=== PATIENT | male | born 1960 | race African-American/Black ===

== ENCOUNTER 2019-05-17 19:27 | Inpatient (IN) ==
[2019-05-17] MEDS ORDERED: DEXTROSE 50% 25 GM/50 ML SYRINGE IV ONE (19:36)
[2019-05-17] MEDS ORDERED: SODIUM CHLORIDE 0.9% 1,000 ML IV STA (19:40)
[2019-05-17] MEDS ORDERED: MIDAZOLAM 2 MG/2 ML VIAL ONE (19:42)
[2019-05-17] MEDS ORDERED: MIDAZOLAM 2 MG/2 ML VIAL IV STA ×2 (19:44)
[2019-05-17] MEDS ORDERED: DEXTROSE 50% 25 GM/50 ML VIAL IV STA (19:44)
[2019-05-17 19:49] LABS: ABG Base Excess 0.2 MMOL/L (-2.5-2.5); ABG HCO3 24.6 MMOL/L (20-26); ABG Oxygen Saturation 99.9 % (95-100); ABG PH 7.437 (7.35-7.45); ABG TCO2 23.3 MMOL/L (23-27)
[2019-05-17 19:55] LABS: Basophils % 0.3 % (0.0-0.8); Hematocrit 20.9 VOL% (42.0-52.0); Immature Granulocytes % 0.8 %; Immature Granulocytes Absolute 0.03 #; Lymphocytes # 0.8 10*3/uL (1.4-4.0); Lymphocytes % 23.4 % (21.2-54.2); Mean Corpuscular HGB Conc 30.1 GM/DL (32-36); Mean Corpuscular Volume 68.3 FL (87-102); Mean Platelet Volume 10.5 FL (9.6-12.0); Monocytes % 3.1 % (1.7-12.7); NRBC # 0.02 10*3/uL; Neutrophils % 72.4 % (38.7-73.9); Platelet Count 288 T/CUMM (130-400); Red Blood Count 3.06 MC/CUMM (3.8-5.5); Red Cell Distribution Width 17.8 % (9.3-17.3); White Blood Count 3.6 T/CUMM (4-12)
[2019-05-17 19:57] LABS: Hemoglobin 6.3 GM/DL (14.0-18.0)
[2019-05-17] MEDS ORDERED: MIDAZOLAM 100 MG in SODIUM CHLORIDE 0.9% 80 ML IV SCH (20:00)
[2019-05-17 20:06] LABS: Alanine Aminotransferase 139 U/L (16-61); Albumin 1.6 G/DL (3.4-5.0); Alkaline Phosphatase 187 U/L (45-117); Aspartate Amino Transferase 658 U/L (0-37); Bilirubin,Total < 0.39 MG/DL (0.2-1.0); Blood Urea Nitrogen 51 MG/DL (7-18); Calcium 7.4 MG/DL (8.5-10.1); Estimated Glom Filtration Rate 77 ML/MIN; Glucose 163 MG/DL (74-106); Osmolality,Calculated 292.7 MOS/KG (273-304); Total Protein 7.5 G/DL (6.4-8.3)
[2019-05-17] MEDS: MIDAZOLAM 100 MG in SODIUM CHLORIDE 0.9% 80 ML IV PRN (20:09)
[2019-05-17 20:14] LABS: Anisocytosis 1+; Band Neutrophils 9 % (0-10); Hypochromasia 2+; Lymphocytes 23 % (20-55); Segmented Neutrophils 64 % (50-85); Target Cells 1+; Total Cells Counted 100
[2019-05-17 20:15] LABS: Platelet Estimate Adequate
[2019-05-17] MEDS ORDERED: NOREPINEPHRINE 4 MG/4 ML VIAL IV ONE ×2 (20:22→20:26)
[2019-05-17 20:25] LABS: Apearance,Urine CLOUDY (Clear); Bilirubin,Urine Negative (Negative); Blood, Urine Moderate mg/dL (Negative); Glucose,Urine (UA) Negative (Negative); Ketones,Urine Negative (Negative); Nitrite,Urine Negative (Negative); Protein,Urine 100 MG/DL; Urine Color Yellow (Yellow); Urine Specific Gravity 1.018 (1.001-1.035); Urine Urobilinogen < 2.0 EU/DL (0.2-1.0)
[2019-05-17] MEDS ORDERED: NOREPINEPHRINE 8 MG in SODIUM CHLORIDE 0.9% 242 ML IV PRN (20:25)
[2019-05-17] MEDS: NOREPINEPHRINE 8 MG in SODIUM CHLORIDE 0.9% 242 ML IV PRN (20:27)
[2019-05-17 20:28] LABS: Bacteria,Urine Moderate /HPF (Few); Mucus,Urine TRACE /LPF (Occasional); Squamous Epithelial Cell,Urine RARE /HPF (0-10); WBC,Urine TNTC /HPF (0-6)
[2019-05-17 20:29] LABS: INR 1.6; PT Patient Result 16.8 SECS (9.6-12.2); Partial Thromboplastin Time 37.6 SECS (20.8-36.0)
[2019-05-17] MEDS ORDERED: VANCOMYCIN INJ 1,000 MG in SODIUM CHLORIDE 0.9% 250 ML IV STA (20:37)
[2019-05-17] MEDS ORDERED: PIPERACILLIN/TAZOBACTAM 3,375 MG in SODIUM CHLORIDE 0.9% 100 ML IV STA (20:37)
[2019-05-17] MEDS ORDERED: SODIUM CHLORIDE 0.9% 1,000 ML IV ONE (21:00)
[2019-05-17] MEDS ORDERED: ROCURONIUM 100 MG/10 ML VIAL IV ONE (21:20)
[2019-05-17] MEDS ORDERED: MIDAZOLAM 2 MG/2 ML VIAL IV ONE (21:25)
[2019-05-17] MEDS ORDERED: PANTOPRAZOLE 40 MG VIAL IV STA (21:34)
[2019-05-17] MEDS: PANTOPRAZOLE INJ 200 MG in SODIUM CHLORIDE 0.9% 250 ML IV SCH (23:50)
[2019-05-18] MEDS ORDERED: ONDANSETRON 4 MG/2 ML VIAL IV PRN (00:15)
[2019-05-18] MEDS ORDERED: ACETAMINOPHEN 325 MG TABLET PO PRN (00:15)
[2019-05-18] MEDS ORDERED: SODIUM CHLORIDE 0.9% 1,000 ML IV PRN (00:15)
[2019-05-18] MEDS ORDERED: ALBUTEROL 2.5 MG/3 ML NEB RESP TX PRN (00:15)
[2019-05-18] MEDS ORDERED: INFLUENZA VIRUS VACCINE 0.5 ML SYRINGE IM ONE (00:23)
[2019-05-18] MEDS ORDERED: PNEUMOCOCCAL VACCINE (13 VALENT) 0.5 ML SYRINGE IM ONE (00:23)
[2019-05-18] MEDS ORDERED: fentaNYL 100 MCG/2 ML VIAL ONE (00:30)
[2019-05-18] MEDS: fentaNYL INJ 1,250 MCG in SODIUM CHLORIDE 0.9% 225 ML IV PRN (01:00)
[2019-05-18] MEDS: OCTREOTIDE 500 MCG in SODIUM CHLORIDE 0.9% 100 ML IV SCH ×3 (01:56→20:11)
[2019-05-18 01:57] LABS: Hemoglobin 6.4 GM/DL (14.0-18.0)
[2019-05-18] MEDS: DEXTROSE 5% NACL 0.9% 1,000 ML IV SCH ×3 (02:10→17:58)
[2019-05-18] MEDS: NOREPINEPHRINE 8 MG in SODIUM CHLORIDE 0.9% 242 ML IV PRN ×4 (04:06→21:42)
[2019-05-18 04:41] LABS: Basophils % 0.3 % (0.0-0.8); Hematocrit 29.7 VOL% (42.0-52.0); Hemoglobin 9.1 GM/DL (14.0-18.0); Immature Granulocytes % 0.3 %; Immature Granulocytes Absolute 0.02 #; Lymphocytes # 1.4 10*3/uL (1.4-4.0); Mean Corpuscular HGB Conc 30.6 GM/DL (32-36); Mean Corpuscular Volume 73.3 FL (87-102); Mean Platelet Volume 10.5 FL (9.6-12.0); Monocytes % 2.7 % (1.7-12.7); NRBC # 0.03 10*3/uL; Neutrophils % 78.7 % (38.7-73.9); Platelet Count 287 T/CUMM (130-400); Red Blood Count 4.05 MC/CUMM (3.8-5.5); Red Cell Distribution Width 22.2 % (9.3-17.3); White Blood Count 7.7 T/CUMM (4-12)
[2019-05-18] MEDS ORDERED: GLUCAGON 1 MG VIAL IM PRN (04:42)
[2019-05-18 05:15] LABS: Band Neutrophils 8 % (0-10); Hypochromasia 2+; Lymphocytes 17 % (20-55); Segmented Neutrophils 72 % (50-85); Target Cells 1+; Total Cells Counted 100
[2019-05-18 05:16] LABS: Anisocytosis 1+; Microcytosis 1+; Platelet Estimate Normal; Spherocytes Slight
[2019-05-18 05:19] LABS: Albumin 1.5 G/DL (3.4-5.0); Bilirubin,Total 0.6 MG/DL (0.2-1.0); Osmolality,Calculated 291.4 MOS/KG (273-304); Risk Ratio 2.16; Thyroid Stimulating Hormone 0.994 uIU/ml (0.358-3.74); VLDL CHOLESTEROL 4.8 MG/DL
[2019-05-18] MEDS: LEVOFLOXACIN INJ 750 MG in PREMIX 1 EACH IV SCH (05:26)
[2019-05-18] MEDS: PIPERACILLIN/TAZOBACTAM 3,375 MG in SODIUM CHLORIDE 0.9% 100 ML IV SCH ×3 (07:04→22:34)
[2019-05-18 07:27] LABS: ABG Base Excess -4.7 MMOL/L (-2.5-2.5); ABG HCO3 20.6 MMOL/L (20-26); ABG Oxygen Saturation 99.3 % (95-100); ABG PCO2 35.7 MM HG (35-48); ABG PH 7.361 (7.35-7.45); ABG TCO2 18.8 MMOL/L (23-27); Allen Test Positive; Pt O2 Delivery Device Ventilator
[2019-05-18] MEDS: ALBUTEROL/IPRATROPIUM 3 ML NEB RESP TX SCH ×4 (07:35→20:15)
[2019-05-18 07:49] LABS: Hematocrit 27.9 VOL% (42.0-52.0); Hemoglobin 8.6 GM/DL (14.0-18.0)
[2019-05-18] MEDS: VANCOMYCIN INJ 750 MG in SODIUM CHLORIDE 0.9% 250 ML IV SCH (10:17)
[2019-05-18 10:29] LABS: Albumin 1.5 G/DL (3.4-5.0); Bilirubin,Direct 0.21 MG/DL (0.0-0.20); Bilirubin,Indirect 0.3 MG/DL (0.0-1.0); Bilirubin,Total 0.5 MG/DL (0.2-1.0); Total Protein 8.1 G/DL (6.4-8.3)
[2019-05-18 12:31] LABS: Hematocrit 26.3 VOL% (42.0-52.0)
[2019-05-18] MEDS: SKIN HEALING OINT (AQUAPHOR) 50 GM TUBE TOP SCH (15:53)
[2019-05-18] MEDS: DEXTROSE 10% 250 ML BAG IV PRN (16:47)
[2019-05-18 18:34] LABS: Hematocrit 26.6 VOL% (42.0-52.0); Hemoglobin 8.2 GM/DL (14.0-18.0)
[2019-05-19] MEDS: PANTOPRAZOLE INJ 200 MG in SODIUM CHLORIDE 0.9% 250 ML IV SCH ×2 (00:20→22:07)
[2019-05-19] MEDS: ALBUTEROL/IPRATROPIUM 3 ML NEB RESP TX SCH ×4 (01:18→20:27)
[2019-05-19] MEDS: DEXTROSE 5% NACL 0.9% 1,000 ML IV SCH ×3 (02:20→18:29)
[2019-05-19] MEDS: NOREPINEPHRINE 8 MG in SODIUM CHLORIDE 0.9% 242 ML IV PRN (03:30)
[2019-05-19] MEDS: VANCOMYCIN INJ 750 MG in SODIUM CHLORIDE 0.9% 250 ML IV SCH ×2 (03:50→21:58)
[2019-05-19] MEDS: DEXTROSE 10% 250 ML BAG IV PRN ×3 (04:05→19:23)
[2019-05-19 04:35] LABS: Basophils % 0.3 % (0.0-0.8); Eosinophils % 0.1 % (0.00-10.9); Hematocrit 25.1 VOL% (42.0-52.0); Hemoglobin 7.9 GM/DL (14.0-18.0); Immature Granulocytes % 0.4 %; Immature Granulocytes Absolute 0.04 #; Lymphocytes # 1.2 10*3/uL (1.4-4.0); Lymphocytes % 12.2 % (21.2-54.2); Mean Corpuscular HGB Conc 31.5 GM/DL (32-36); Mean Corpuscular Volume 75.4 FL (87-102); Mean Platelet Volume 11.2 FL (9.6-12.0); Monocytes % 3.1 % (1.7-12.7); NRBC # 0.04 10*3/uL; Neutrophils % 83.9 % (38.7-73.9); Platelet Count 161 T/CUMM (130-400); Red Blood Count 3.33 MC/CUMM (3.8-5.5); Red Cell Distribution Width 21.2 % (9.3-17.3); White Blood Count 9.7 T/CUMM (4-12)
[2019-05-19 04:58] LABS: Albumin 1.2 G/DL (3.4-5.0); Bilirubin,Total 1.4 MG/DL (0.2-1.0); Calcium 6.7 MG/DL (8.5-10.1); Osmolality,Calculated 295.6 MOS/KG (273-304)
[2019-05-19] MEDS: LEVOFLOXACIN INJ 750 MG in PREMIX 1 EACH IV SCH (05:05)
[2019-05-19 05:13] LABS: Band Neutrophils 5 % (0-10); Lymphocytes 11 % (20-55); Nucleated Red Blood Cells 1 (0-5); Platelet Estimate Adequate; Segmented Neutrophils 83 % (50-85); Total Cells Counted 100
[2019-05-19 05:14] LABS: Hypochromasia 1+; Microcytosis 1+; Target Cells Few
[2019-05-19] MEDS: OCTREOTIDE 500 MCG in SODIUM CHLORIDE 0.9% 100 ML IV SCH ×2 (06:40→18:48)
[2019-05-19] MEDS: PIPERACILLIN/TAZOBACTAM 3,375 MG in SODIUM CHLORIDE 0.9% 100 ML IV SCH ×3 (06:45→21:41)
[2019-05-19] MEDS: SKIN HEALING OINT (AQUAPHOR) 50 GM TUBE TOP SCH (10:21)
[2019-05-19] MEDS: NOREPINEPHRINE 16 MG in SODIUM CHLORIDE 0.9% 234 ML IV PRN (10:25)
[2019-05-19] MEDS: fentaNYL INJ 1,250 MCG in SODIUM CHLORIDE 0.9% 225 ML IV PRN (12:40)
[2019-05-19] MEDS: MIDAZOLAM 100 MG in SODIUM CHLORIDE 0.9% 80 ML IV PRN (12:42)
[2019-05-20] MEDS: DEXTROSE 10% 250 ML BAG IV PRN ×2 (00:25→13:38)
[2019-05-20] MEDS: ALBUTEROL/IPRATROPIUM 3 ML NEB RESP TX SCH ×4 (00:30→19:44)
[2019-05-20] MEDS: DEXTROSE 5% NACL 0.9% 1,000 ML IV SCH ×3 (02:35→19:16)
[2019-05-20] MEDS: OCTREOTIDE 500 MCG in SODIUM CHLORIDE 0.9% 100 ML IV SCH (02:41)
[2019-05-20] MEDS: NOREPINEPHRINE 16 MG in SODIUM CHLORIDE 0.9% 234 ML IV PRN (02:43)
[2019-05-20 03:27] LABS: ABG Base Excess -6.4 MMOL/L (-2.5-2.5); ABG HCO3 19.1 MMOL/L (20-26); ABG Oxygen Saturation 97.5 % (95-100); ABG PCO2 35.8 MM HG (35-48); ABG PH 7.329 (7.35-7.45); ABG TCO2 17.1 MMOL/L (23-27); Allen Test Positive; Pt O2 Delivery Device Ventilator
[2019-05-20 04:39] LABS: Basophils % 0.3 % (0.0-0.8); Eosinophils % 0.3 % (0.00-10.9); Hematocrit 23.9 VOL% (42.0-52.0); Hemoglobin 7.4 GM/DL (14.0-18.0); Immature Granulocytes % 0.4 %; Immature Granulocytes Absolute 0.05 #; Lymphocytes # 1.3 10*3/uL (1.4-4.0); Lymphocytes % 11.7 % (21.2-54.2); Mean Corpuscular Volume 75.6 FL (87-102); Mean Platelet Volume 10.9 FL (9.6-12.0); Monocytes % 3.1 % (1.7-12.7); NRBC # 0.05 10*3/uL; Neutrophils % 84.2 % (38.7-73.9); Platelet Count 114 T/CUMM (130-400); Red Blood Count 3.16 MC/CUMM (3.8-5.5); Red Cell Distribution Width 21.5 % (9.3-17.3); White Blood Count 11.2 T/CUMM (4-12)
[2019-05-20 04:59] LABS: Albumin 1.2 G/DL (3.4-5.0); Bilirubin,Total 0.9 MG/DL (0.2-1.0); Total Protein 6.8 G/DL (6.4-8.3)
[2019-05-20 05:00] LABS: Band Neutrophils 3 % (0-10); Hypochromasia 1+; Lymphocytes 8 % (20-55); Nucleated Red Blood Cells 2 (0-5); Platelet Estimate Decreased; Segmented Neutrophils 87 % (50-85); Target Cells Few; Total Cells Counted 100
[2019-05-20 05:02] LABS: Microcytosis 1+
[2019-05-20] MEDS: LEVOFLOXACIN INJ 750 MG in PREMIX 1 EACH IV SCH (05:19)
[2019-05-20] MEDS: PIPERACILLIN/TAZOBACTAM 3,375 MG in SODIUM CHLORIDE 0.9% 100 ML IV SCH ×3 (06:39→22:42)
[2019-05-20] MEDS: HYDROCORTISONE 100 MG VIAL IV SCH ×2 (08:21→17:51)
[2019-05-20] MEDS: SKIN HEALING OINT (AQUAPHOR) 50 GM TUBE TOP SCH (08:23)
[2019-05-20 12:47] LABS: Anti-Nuclear Antibody Pattern SPECKLED
[2019-05-20] MEDS: PANTOPRAZOLE 40 MG VIAL IV SCH (13:13)
[2019-05-20] MEDS: VANCOMYCIN INJ 750 MG in SODIUM CHLORIDE 0.9% 250 ML IV SCH (17:53)
[2019-05-20 19:32] LABS: Hematocrit 27.4 VOL% (42.0-52.0); Hemoglobin 8.6 GM/DL (14.0-18.0)
[2019-05-21] MEDS: PANTOPRAZOLE 40 MG VIAL IV SCH ×3 (00:31→23:09)
[2019-05-21] MEDS: HYDROCORTISONE 100 MG VIAL IV SCH ×3 (00:31→16:27)
[2019-05-21] MEDS: SODIUM CHLORIDE 0.9% 1,000 ML IV SCH ×3 (00:31→18:48)
[2019-05-21] MEDS: ALBUTEROL/IPRATROPIUM 3 ML NEB RESP TX SCH ×4 (00:50→19:26)
[2019-05-21 05:26] LABS: Prealbumin < 3.0 MG/DL (20-40)
[2019-05-21] MEDS: LEVOFLOXACIN INJ 750 MG in PREMIX 1 EACH IV SCH (05:32)
[2019-05-21] MEDS: PIPERACILLIN/TAZOBACTAM 3,375 MG in SODIUM CHLORIDE 0.9% 100 ML IV SCH (06:00)
[2019-05-21] MEDS: fentaNYL INJ 1,250 MCG in SODIUM CHLORIDE 0.9% 225 ML IV PRN ×2 (07:22→22:40)
[2019-05-21] MEDS: SKIN HEALING OINT (AQUAPHOR) 50 GM TUBE TOP SCH (09:36)
[2019-05-21] MEDS: MIDAZOLAM 100 MG in SODIUM CHLORIDE 0.9% 80 ML IV PRN (09:37)
[2019-05-21 09:51] LABS: Double Stranded DNA Antibodies < 25.0 IU/ML
[2019-05-21 10:05] LABS: Basophils % 0.1 % (0.0-0.8); Hemoglobin 8.9 GM/DL (14.0-18.0); Immature Granulocytes % 0.7 %; Immature Granulocytes Absolute 0.07 #; Lymphocytes # 0.8 10*3/uL (1.4-4.0); Lymphocytes % 7.5 % (21.2-54.2); Mean Corpuscular HGB Conc 31.8 GM/DL (32-36); Mean Corpuscular Volume 78.7 FL (87-102); Mean Platelet Volume 10.8 FL (9.6-12.0); Monocytes % 2.9 % (1.7-12.7); NRBC # 0.02 10*3/uL; Neutrophils % 88.8 % (38.7-73.9); Platelet Count 123 T/CUMM (130-400); Red Blood Count 3.56 MC/CUMM (3.8-5.5); Red Cell Distribution Width 21.8 % (9.3-17.3); White Blood Count 10.8 T/CUMM (4-12)
[2019-05-21 10:32] LABS: Band Neutrophils 7 % (0-10); Hypochromasia 1+; Lymphocytes 5 % (20-55); Microcytosis 1+; Segmented Neutrophils 86 % (50-85); Target Cells Few; Total Cells Counted 100
[2019-05-21 10:33] LABS: Burr Cells Few; Platelet Estimate Adequate
[2019-05-21] MEDS: VANCOMYCIN INJ 750 MG in SODIUM CHLORIDE 0.9% 250 ML IV SCH (11:15)
[2019-05-21 11:30] LABS: Hepatitis B Core IgM Quant 0.09 Index; Hepatitis B Surface Ag Quant < 0.10 Index; Hepatitis B Surface Ag Result Negative (Negative); Hepatitis C Virus Ab Result Negative (Negative)
[2019-05-21] MEDS: levETIRAcetam LIQUID 100 MG/ML 30 ML/BOTTLE PER TUBE SCH ×2 (11:34→20:23)
[2019-05-21] MEDS: ceFAZolin 1,000 MG in SYRINGE 1 EACH IV SCH ×2 (14:28→21:06)
[2019-05-21 15:57] LABS: Anti SS-A Antibodies > 100 EU/ML
[2019-05-21] MEDS: PHENYTOIN 100 MG/4 ML UDCUP PER TUBE SCH (20:23)
[2019-05-22] MEDS: HYDROCORTISONE 100 MG VIAL IV SCH ×4 (00:17→23:38)
[2019-05-22] MEDS: ALBUTEROL/IPRATROPIUM 3 ML NEB RESP TX SCH ×4 (01:58→19:25)
[2019-05-22] MEDS: SODIUM CHLORIDE 0.9% 1,000 ML IV SCH (02:54)
[2019-05-22 03:18] LABS: ABG Base Excess -7.8 MMOL/L (-2.5-2.5); ABG HCO3 18.1 MMOL/L (20-26); ABG Oxygen Saturation 99.1 % (95-100); ABG PCO2 38.8 MM HG (35-48); ABG PH 7.284 (7.35-7.45); ABG TCO2 17.1 MMOL/L (23-27); Allen Test Positive; Pt O2 Delivery Device Ventilator
[2019-05-22] MEDS: ceFAZolin 1,000 MG in SYRINGE 1 EACH IV SCH ×3 (05:00→22:01)
[2019-05-22] MEDS: MIDAZOLAM 100 MG in SODIUM CHLORIDE 0.9% 80 ML IV PRN (08:32)
[2019-05-22] MEDS: SKIN HEALING OINT (AQUAPHOR) 50 GM TUBE TOP SCH (08:37)
[2019-05-22 10:13] LABS: Troponin I 0.042 NG/ML (0.00-0.045)
[2019-05-22] MEDS: PANTOPRAZOLE 40 MG VIAL IV SCH ×2 (11:24→23:38)
[2019-05-22] MEDS: levETIRAcetam LIQUID 100 MG/ML 30 ML/BOTTLE PER TUBE SCH ×2 (11:29→20:13)
[2019-05-22] MEDS: PHENYTOIN 100 MG/4 ML UDCUP PER TUBE SCH ×2 (11:29→20:13)
[2019-05-22 11:44] LABS: Basophils % 0.1 % (0.0-0.8); Hematocrit 27.9 VOL% (42.0-52.0); Hemoglobin 8.8 GM/DL (14.0-18.0); Immature Granulocytes % 0.5 %; Immature Granulocytes Absolute 0.05 #; Lymphocytes # 0.8 10*3/uL (1.4-4.0); Lymphocytes % 8.7 % (21.2-54.2); Mean Corpuscular HGB Conc 31.5 GM/DL (32-36); Mean Corpuscular Volume 78.4 FL (87-102); Mean Platelet Volume 10.4 FL (9.6-12.0); Monocytes % 3.4 % (1.7-12.7); Neutrophils % 87.3 % (38.7-73.9); Platelet Count 116 T/CUMM (130-400); Red Blood Count 3.56 MC/CUMM (3.8-5.5); Red Cell Distribution Width 22.7 % (9.3-17.3); White Blood Count 9.4 T/CUMM (4-12)
[2019-05-22 12:01] LABS: Bilirubin,Total 0.4 MG/DL (0.2-1.0); Calcium 7.1 MG/DL (8.5-10.1); Osmolality,Calculated 300.3 MOS/KG (273-304); Total Protein 6.5 G/DL (6.4-8.3)
[2019-05-22] MEDS: fentaNYL INJ 1,250 MCG in SODIUM CHLORIDE 0.9% 225 ML IV PRN (12:22)
[2019-05-22] MEDS: LACTATED RINGERS 1,000 ML IV SCH (12:24)
[2019-05-22] MEDS ORDERED: MAGNESIUM SULF RIDER 4 GM in PREMIX 1 EACH IV PRN (12:34)
[2019-05-22] MEDS ORDERED: MAGNESIUM SULF RIDER 2 GM in PREMIX 1 EACH IV PRN (12:34)
[2019-05-22] MEDS ORDERED: SODIUM CHLOR 0.45% KCL 20 MEQ 20 MEQ/1,000 ML BAG IV SCH (13:00)
[2019-05-22 13:05] LABS: Lymphocytes 9 % (20-55); Platelet Estimate Decreased; Segmented Neutrophils 88 % (50-85); Total Cells Counted 100
[2019-05-22 13:06] LABS: Acanthocytes Few; Anisocytosis Slight; Hypochromasia 1+; Microcytosis 1+; Ovalocytes Few; Target Cells Few; Tear Drop Cells Few
[2019-05-22] MEDS ORDERED: ETOMIDATE 40 MG/20 ML VIAL IV ONE (15:17)
[2019-05-22] MEDS: POTASSIUM CHLORIDE 20 MEQ/15 ML UDCUP PER TUBE PRN ×3 (17:14→23:37)
[2019-05-23] MEDS: ALBUTEROL/IPRATROPIUM 3 ML NEB RESP TX SCH ×4 (00:58→18:16)
[2019-05-23] MEDS: fentaNYL INJ 1,250 MCG in SODIUM CHLORIDE 0.9% 225 ML IV PRN ×2 (02:54→13:46)
[2019-05-23] MEDS: ceFAZolin 1,000 MG in SYRINGE 1 EACH IV SCH ×3 (05:58→21:58)
[2019-05-23 07:58] LABS: Calcium 7.3 MG/DL (8.5-10.1)
[2019-05-23] MEDS: HYDROCORTISONE 100 MG VIAL IV SCH ×3 (08:34→23:00)
[2019-05-23] MEDS: LACTATED RINGERS 1,000 ML IV SCH (08:37)
[2019-05-23] MEDS: SKIN HEALING OINT (AQUAPHOR) 50 GM TUBE TOP SCH (09:56)
[2019-05-23] MEDS: PHENYTOIN 100 MG/4 ML UDCUP PER TUBE SCH ×2 (09:56→21:57)
[2019-05-23] MEDS: levETIRAcetam LIQUID 100 MG/ML 30 ML/BOTTLE PER TUBE SCH ×2 (10:33→21:58)
[2019-05-23] MEDS: MIDAZOLAM 100 MG in SODIUM CHLORIDE 0.9% 80 ML IV PRN (10:34)
[2019-05-23] MEDS: PANTOPRAZOLE 40 MG VIAL IV SCH ×2 (11:50→22:47)
[2019-05-23 13:08] LABS: ABG Base Excess -3.1 MMOL/L (-2.5-2.5); ABG HCO3 21.9 MMOL/L (20-26); ABG PCO2 34.2 MM HG (35-48); ABG PH 7.399 (7.35-7.45); ABG TCO2 19.2 MMOL/L (23-27)
[2019-05-23] MEDS: FUROSEMIDE 40 MG/4 ML VIAL IV SCH (15:55)
[2019-05-23 16:14] LABS: Basophils % 0.1 % (0.0-0.8); Eosinophils % 0.1 % (0.00-10.9); Hematocrit 30.7 VOL% (42.0-52.0); Hemoglobin 9.6 GM/DL (14.0-18.0); Immature Granulocytes % 0.4 %; Immature Granulocytes Absolute 0.04 #; Lymphocytes # 1.3 10*3/uL (1.4-4.0); Lymphocytes % 13.7 % (21.2-54.2); Mean Corpuscular HGB Conc 31.3 GM/DL (32-36); Mean Corpuscular Volume 79.3 FL (87-102); Monocytes % 2.9 % (1.7-12.7); Neutrophils % 82.8 % (38.7-73.9); Platelet Count 109 T/CUMM (130-400); Red Blood Count 3.87 MC/CUMM (3.8-5.5); Red Cell Distribution Width 23.1 % (9.3-17.3); White Blood Count 9.3 T/CUMM (4-12)
[2019-05-23] MEDS: THIAMINE 200 MG/2 ML VIAL IV SCH (16:31)
[2019-05-23] MEDS: FOLIC ACID INJ 1 MG in SYRINGE 1 EACH IV SCH (16:32)
[2019-05-23] MEDS ORDERED: LORazepam 2 MG/1 ML VIAL IV ONE (16:56)
[2019-05-23] MEDS: DEXMEDETOMIDINE 200 MCG in SODIUM CHLORIDE 0.9% 48 ML IV PRN (17:40)
[2019-05-23 18:15] LABS: Hypochromasia 3+
[2019-05-23 18:16] LABS: Burr Cells 2+; Microcytosis 2+; Schistocytes 1+
[2019-05-23 18:17] LABS: Polychromasia Slight; Spherocytes 1+; Target Cells 2+
[2019-05-23 18:18] LABS: Anisocytosis 1+; Platelet Estimate Adequate
[2019-05-24] MEDS: fentaNYL INJ 1,250 MCG in SODIUM CHLORIDE 0.9% 225 ML IV PRN (00:32)
[2019-05-24] MEDS: ALBUTEROL/IPRATROPIUM 3 ML NEB RESP TX SCH ×4 (01:07→19:02)
[2019-05-24] MEDS: DEXMEDETOMIDINE 200 MCG in SODIUM CHLORIDE 0.9% 48 ML IV PRN (02:21)
[2019-05-24 04:21] LABS: ABG HCO3 25.3 MMOL/L (20-26); ABG Oxygen Saturation 98.4 % (95-100); ABG PCO2 46.4 MM HG (35-48); ABG PH 7.368 (7.35-7.45); ABG TCO2 24.5 MMOL/L (23-27); Allen Test Positive; Pt O2 Delivery Device Ventilator
[2019-05-24] MEDS ORDERED: SODIUM CHLORIDE 0.9% 500 ML IV ONE (05:17)
[2019-05-24] MEDS: ceFAZolin 1,000 MG in SYRINGE 1 EACH IV SCH ×3 (05:55→21:43)
[2019-05-24 06:18] LABS: Calcium 6.8 MG/DL (8.5-10.1); Osmolality,Calculated 297.4 MOS/KG (273-304)
[2019-05-24 06:24] LABS: Basophils % 0.1 % (0.0-0.8); Eosinophils % 0.1 % (0.00-10.9); Hematocrit 28.6 VOL% (42.0-52.0); Immature Granulocytes % 0.4 %; Immature Granulocytes Absolute 0.03 #; Lymphocytes # 1.1 10*3/uL (1.4-4.0); Lymphocytes % 13.6 % (21.2-54.2); Mean Corpuscular HGB Conc 31.5 GM/DL (32-36); Mean Corpuscular Volume 79.2 FL (87-102); Monocytes % 2.3 % (1.7-12.7); Neutrophils % 83.5 % (38.7-73.9); Platelet Count 68 T/CUMM (130-400); Red Blood Count 3.61 MC/CUMM (3.8-5.5); Red Cell Distribution Width 22.9 % (9.3-17.3); White Blood Count 7.8 T/CUMM (4-12)
[2019-05-24 07:05] LABS: Anisocytosis 1+; Band Neutrophils 1 % (0-10); Lymphocytes 15 % (20-55); Segmented Neutrophils 84 % (50-85); Total Cells Counted 100
[2019-05-24 07:06] LABS: Hypochromasia 1+; Platelet Estimate Decreased; Target Cells 2+
[2019-05-24] MEDS: FOLIC ACID INJ 1 MG in SYRINGE 1 EACH IV SCH (08:27)
[2019-05-24] MEDS: POTASSIUM CHLORIDE RIDER 20 MEQ in PREMIX 1 EACH IV PRN ×2 (08:27→11:20)
[2019-05-24] MEDS: HYDROCORTISONE 100 MG VIAL IV SCH ×2 (08:28→17:14)
[2019-05-24] MEDS: FUROSEMIDE 40 MG/4 ML VIAL IV SCH (08:30)
[2019-05-24] MEDS: THIAMINE 200 MG/2 ML VIAL IV SCH (08:31)
[2019-05-24] MEDS: SKIN HEALING OINT (AQUAPHOR) 50 GM TUBE TOP SCH (08:32)
[2019-05-24] MEDS: PHENYTOIN 100 MG/4 ML UDCUP PER TUBE SCH ×2 (08:40→21:44)
[2019-05-24] MEDS: PANTOPRAZOLE 40 MG VIAL IV SCH (11:19)
[2019-05-24] MEDS: levETIRAcetam LIQUID 100 MG/ML 30 ML/BOTTLE PER TUBE SCH ×2 (11:19→22:29)
[2019-05-24] MEDS: FAMOTIDINE 20 MG/2 ML VIAL IV SCH (15:53)
[2019-05-24 16:16] LABS: INR 1.1; PT Patient Result 12.1 SECS (9.6-12.2)
[2019-05-24] MEDS: DEXTROSE 10% 250 ML BAG IV PRN (16:28)
[2019-05-25] MEDS: POTASSIUM CHLORIDE RIDER 20 MEQ in PREMIX 1 EACH IV PRN ×2 (00:23→02:23)
[2019-05-25] MEDS: ALBUTEROL/IPRATROPIUM 3 ML NEB RESP TX SCH ×4 (00:27→19:05)
[2019-05-25] MEDS: HYDROCORTISONE 100 MG VIAL IV SCH ×3 (00:33→16:23)
[2019-05-25 03:47] LABS: Basophils % 0.1 % (0.0-0.8); Eosinophils % 0.1 % (0.00-10.9); Hematocrit 30.7 VOL% (42.0-52.0); Hemoglobin 9.6 GM/DL (14.0-18.0); Immature Granulocytes % 0.4 %; Immature Granulocytes Absolute 0.04 #; Lymphocytes % 9.5 % (21.2-54.2); Mean Corpuscular HGB Conc 31.3 GM/DL (32-36); Mean Corpuscular Volume 78.3 FL (87-102); Monocytes % 1.9 % (1.7-12.7); Platelet Count 72 T/CUMM (130-400); Red Blood Count 3.92 MC/CUMM (3.8-5.5); Red Cell Distribution Width 22.6 % (9.3-17.3)
[2019-05-25 04:27] LABS: Prealbumin 6.6 MG/DL (20-40)
[2019-05-25] MEDS: FAMOTIDINE 20 MG/2 ML VIAL IV SCH ×2 (04:29→16:23)
[2019-05-25 04:32] LABS: Band Neutrophils 1 % (0-10); Lymphocytes 7 % (20-55); Segmented Neutrophils 91 % (50-85); Total Cells Counted 100
[2019-05-25 04:33] LABS: Hypochromasia 1+; Platelet Estimate Decreased
[2019-05-25 04:34] LABS: Microcytosis Slight
[2019-05-25 04:50] LABS: Osmolality,Calculated 282.3 MOS/KG (273-304)
[2019-05-25 05:05] LABS: Alanine Aminotransferase 30 U/L (16-61); Albumin 1.1 G/DL (3.4-5.0); Alkaline Phosphatase 164 U/L (45-117); Aspartate Amino Transferase 95 U/L (0-37); Bilirubin,Direct < 0.100 MG/DL (0.0-0.20); Bilirubin,Indirect 0.4 MG/DL (0.0-1.0); Total Protein 6.8 G/DL (6.4-8.3)
[2019-05-25] MEDS: ceFAZolin 1,000 MG in SYRINGE 1 EACH IV SCH ×3 (06:28→21:18)
[2019-05-25] MEDS ORDERED: ETOMIDATE 20 MG/10 ML VIAL IV ONE (09:00)
[2019-05-25] MEDS: PHENYTOIN 100 MG/4 ML UDCUP PER TUBE SCH (09:25)
[2019-05-25] MEDS: THIAMINE 200 MG/2 ML VIAL IV SCH (09:29)
[2019-05-25] MEDS: carvediloL 3.125 MG TABLET PO SCH (09:33)
[2019-05-25] MEDS: FOLIC ACID INJ 1 MG in SYRINGE 1 EACH IV SCH (09:34)
[2019-05-25] MEDS: levETIRAcetam LIQUID 100 MG/ML 30 ML/BOTTLE PER TUBE SCH (09:38)
[2019-05-25] MEDS: SKIN HEALING OINT (AQUAPHOR) 50 GM TUBE TOP SCH (09:41)
[2019-05-25] MEDS: DEXTROSE 10% 250 ML BAG IV PRN (21:10)
[2019-05-26] MEDS: DEXTROSE 10% 250 ML BAG IV PRN ×2 (00:01→04:41)
[2019-05-26] MEDS ORDERED: DEXTROSE 5% NACL 0.45% 1,000 ML IV SCH (00:30)
[2019-05-26] MEDS: HYDROCORTISONE 100 MG VIAL IV SCH ×3 (00:59→17:25)
[2019-05-26] MEDS: carvediloL 3.125 MG TABLET PO SCH (01:00)
[2019-05-26] MEDS: PHENYTOIN 100 MG/4 ML UDCUP PER TUBE SCH ×3 (01:00→20:54)
[2019-05-26] MEDS: levETIRAcetam LIQUID 100 MG/ML 30 ML/BOTTLE PER TUBE SCH (01:06)
[2019-05-26] MEDS: ALBUTEROL/IPRATROPIUM 3 ML NEB RESP TX SCH ×4 (01:07→19:28)
[2019-05-26] MEDS ORDERED: DEXTROSE 10% 1,000 ML IV SCH (05:00)
[2019-05-26] MEDS: DEXTROSE 10% 500 ML IV SCH ×5 (05:43→20:58)
[2019-05-26] MEDS: FAMOTIDINE 20 MG/2 ML VIAL IV SCH (05:44)
[2019-05-26] MEDS: ceFAZolin 1,000 MG in SYRINGE 1 EACH IV SCH ×3 (05:44→21:00)
[2019-05-26 06:40] LABS: Calcium 7.3 MG/DL (8.5-10.1); Osmolality,Calculated 268.4 MOS/KG (273-304)
[2019-05-26 07:03] LABS: Basophils % 0.1 % (0.0-0.8); Eosinophils % 0.1 % (0.00-10.9); Hematocrit 33.9 VOL% (42.0-52.0); Hemoglobin 10.6 GM/DL (14.0-18.0); Immature Granulocytes % 0.6 %; Immature Granulocytes Absolute 0.05 #; Lymphocytes # 1.3 10*3/uL (1.4-4.0); Lymphocytes % 14.2 % (21.2-54.2); Mean Corpuscular HGB Conc 31.3 GM/DL (32-36); Mean Corpuscular Volume 78.1 FL (87-102); Monocytes % 2.6 % (1.7-12.7); Neutrophils % 82.4 % (38.7-73.9); Red Blood Count 4.34 MC/CUMM (3.8-5.5); Red Cell Distribution Width 22.9 % (9.3-17.3); White Blood Count 9.1 T/CUMM (4-12)
[2019-05-26 07:06] LABS: Platelet Count 99 T/CUMM (130-400)
[2019-05-26 07:22] LABS: Band Neutrophils 1 % (0-10); Hypochromasia 1+; Lymphocytes 12 % (20-55); Platelet Estimate Decreased; Segmented Neutrophils 86 % (50-85); Total Cells Counted 100
[2019-05-26 07:23] LABS: Microcytosis Slight
[2019-05-26] MEDS: carvediloL 6.25 MG TABLET PO SCH ×2 (08:45→17:32)
[2019-05-26] MEDS: SKIN HEALING OINT (AQUAPHOR) 50 GM TUBE TOP SCH (09:08)
[2019-05-26] MEDS ORDERED: POTASSIUM PHOSPHATE 15 MMOL in SODIUM CHLORIDE 0.9% 100 ML IV ONE (10:00)
[2019-05-26] MEDS ORDERED: TUBERCULIN SKIN TEST 0.1 ML SYRINGE INTRADERM ONE (10:58)
[2019-05-26 14:44] LABS: Basophils % 0.3 % (0.0-0.8); Hematocrit 31.4 VOL% (42.0-52.0); Hemoglobin 10.1 GM/DL (14.0-18.0); Immature Granulocytes % 0.4 %; Immature Granulocytes Absolute 0.05 #; Lymphocytes # 1.3 10*3/uL (1.4-4.0); Mean Corpuscular HGB Conc 32.2 GM/DL (32-36); Monocytes % 1.9 % (1.7-12.7); Neutrophils % 86.4 % (38.7-73.9); Platelet Count 101 T/CUMM (130-400); Red Blood Count 4.08 MC/CUMM (3.8-5.5); Red Cell Distribution Width 22.5 % (9.3-17.3); White Blood Count 11.5 T/CUMM (4-12)
[2019-05-26 15:05] LABS: Anisocytosis 1+; Hypochromasia 1+; Lymphocytes 11 % (20-55); Microcytosis 1+; Platelet Estimate Decreased; Segmented Neutrophils 87 % (50-85); Total Cells Counted 100
[2019-05-26 15:06] LABS: Ovalocytes Few; Target Cells Few; Tear Drop Cells Few
[2019-05-27] MEDS: HYDROCORTISONE 100 MG VIAL IV SCH ×3 (00:20→16:51)
[2019-05-27] MEDS: DEXTROSE 10% 500 ML IV SCH ×2 (01:00→08:13)
[2019-05-27 06:08] LABS: Calcium 7.3 MG/DL (8.5-10.1); Osmolality,Calculated 265.5 MOS/KG (273-304)
[2019-05-27 06:11] LABS: Albumin 1.1 G/DL (3.4-5.0); Bilirubin,Total 0.9 MG/DL (0.2-1.0); Calcium 7.2 MG/DL (8.5-10.1); Osmolality,Calculated 269.2 MOS/KG (273-304); Total Protein 5.9 G/DL (6.4-8.3)
[2019-05-27 06:24] LABS: Basophils % 0.1 % (0.0-0.8); Eosinophils % 0.2 % (0.00-10.9); Hematocrit 27.7 VOL% (42.0-52.0); Hemoglobin 8.9 GM/DL (14.0-18.0); Immature Granulocytes % 0.6 %; Immature Granulocytes Absolute 0.06 #; Lymphocytes # 1.5 10*3/uL (1.4-4.0); Lymphocytes % 14.9 % (21.2-54.2); Mean Corpuscular HGB Conc 32.1 GM/DL (32-36); Mean Corpuscular Volume 76.9 FL (87-102); Monocytes % 1.9 % (1.7-12.7); Neutrophils % 82.3 % (38.7-73.9); Platelet Count 132 T/CUMM (130-400); Red Cell Distribution Width 22.5 % (9.3-17.3); White Blood Count 9.9 T/CUMM (4-12)
[2019-05-27 06:42] LABS: Band Neutrophils 9 % (0-10); Hypochromasia 2+; Lymphocytes 15 % (20-55); Nucleated Red Blood Cells 1 (0-5); Segmented Neutrophils 75 % (50-85); Total Cells Counted 100
[2019-05-27 06:43] LABS: Microcytosis 1+; Platelet Estimate Adequate
[2019-05-27] MEDS: ALBUTEROL/IPRATROPIUM 3 ML NEB RESP TX SCH ×4 (07:48→19:40)
[2019-05-27] MEDS ORDERED: FUROSEMIDE 20 MG/2 ML VIAL IV ONE ×2 (08:30→16:00)
[2019-05-27] MEDS: THIAMINE 100 MG TABLET PO SCH (08:56)
[2019-05-27] MEDS: ceFAZolin 1,000 MG in SYRINGE 1 EACH IV SCH ×3 (08:56→21:54)
[2019-05-27] MEDS: carvediloL 6.25 MG TABLET PO SCH ×2 (08:56→16:52)
[2019-05-27] MEDS: PHENYTOIN 100 MG/4 ML UDCUP PER TUBE SCH ×2 (08:56→21:55)
[2019-05-27] MEDS: FOLIC ACID 1 MG TABLET PO SCH (08:57)
[2019-05-27] MEDS: POTASSIUM CHLORIDE RIDER 10 MEQ in PREMIX 1 EACH IV PRN ×3 (08:57→11:29)
[2019-05-27] MEDS: levETIRAcetam 500 MG TABLET PO SCH ×2 (08:57→21:55)
[2019-05-27] MEDS: SKIN HEALING OINT (AQUAPHOR) 50 GM TUBE TOP SCH (08:58)
[2019-05-27] MEDS ORDERED: POTASSIUM PHOSPHATE 30 MMOL in SODIUM CHLORIDE 0.9% 250 ML IV ONE (09:00)
[2019-05-27 15:21] LABS: Hematocrit 28.7 VOL% (42.0-52.0); Hemoglobin 9.1 GM/DL (14.0-18.0)
[2019-05-27] MEDS: PANTOPRAZOLE 40 MG TABLET PO SCH (16:52)
[2019-05-27 18:25] LABS: Hematocrit 29.2 VOL% (42.0-52.0); Hemoglobin 9.4 GM/DL (14.0-18.0)
[2019-05-28] MEDS: HYDROCORTISONE 100 MG VIAL IV SCH ×3 (00:29→17:20)
[2019-05-28] MEDS: ALBUTEROL/IPRATROPIUM 3 ML NEB RESP TX SCH ×4 (00:40→19:04)
[2019-05-28 00:47] LABS: Hematocrit 26.3 VOL% (42.0-52.0); Hemoglobin 8.1 GM/DL (14.0-18.0)
[2019-05-28] MEDS: ceFAZolin 1,000 MG in SYRINGE 1 EACH IV SCH ×3 (05:49→21:54)
[2019-05-28] MEDS: PANTOPRAZOLE 40 MG TABLET PO SCH (05:49)
[2019-05-28] MEDS: DEXTROSE 10% 250 ML BAG IV PRN (06:09)
[2019-05-28 06:33] LABS: Basophils % 0.2 % (0.0-0.8); Eosinophils % 0.2 % (0.00-10.9); Hematocrit 27.1 VOL% (42.0-52.0); Hemoglobin 8.5 GM/DL (14.0-18.0); Immature Granulocytes % 0.4 %; Immature Granulocytes Absolute 0.04 #; Lymphocytes # 1.2 10*3/uL (1.4-4.0); Lymphocytes % 10.7 % (21.2-54.2); Mean Corpuscular HGB Conc 31.4 GM/DL (32-36); Mean Corpuscular Volume 78.3 FL (87-102); Monocytes % 2.4 % (1.7-12.7); Neutrophils % 86.1 % (38.7-73.9); Platelet Count 146 T/CUMM (130-400); Red Blood Count 3.46 MC/CUMM (3.8-5.5); Red Cell Distribution Width 22.5 % (9.3-17.3)
[2019-05-28 07:01] LABS: Alanine Aminotransferase 51 U/L (16-61); Albumin 1.2 G/DL (3.4-5.0); Alkaline Phosphatase 231 U/L (45-117); Aspartate Amino Transferase 166 U/L (0-37); Bilirubin,Total < 0.39 MG/DL (0.2-1.0); Blood Urea Nitrogen 18 MG/DL (7-18); Calcium 7.1 MG/DL (8.5-10.1); Estimated Glom Filtration Rate 126 ML/MIN; Glucose 59 MG/DL (74-106); Hypochromasia 1+; Lymphocytes 7 % (20-55); Microcytosis 1+; Osmolality,Calculated 269.1 MOS/KG (273-304); Platelet Estimate Normal; Segmented Neutrophils 91 % (50-85); Total Cells Counted 100; Total Protein 6.3 G/DL (6.4-8.3)
[2019-05-28] MEDS: PHENYTOIN 100 MG/4 ML UDCUP PER TUBE SCH ×2 (08:40→21:54)
[2019-05-28] MEDS: FOLIC ACID 1 MG TABLET PO SCH (08:42)
[2019-05-28] MEDS: THIAMINE 100 MG TABLET PO SCH (08:42)
[2019-05-28] MEDS: levETIRAcetam 500 MG TABLET PO SCH ×2 (08:42→21:54)
[2019-05-28] MEDS: carvediloL 6.25 MG TABLET PO SCH ×2 (08:42→16:28)
[2019-05-28] MEDS: SKIN HEALING OINT (AQUAPHOR) 50 GM TUBE TOP SCH (08:43)
[2019-05-28] MEDS ORDERED: FUROSEMIDE 20 MG/2 ML VIAL IV ONE (11:30)
[2019-05-28] MEDS ORDERED: BISACODYL 5 MG TABLET PO ONE (12:00)
[2019-05-28] MEDS ORDERED: POLYETHYLENE GLYCOL 3350/ELECTROLYTES 4,000 ML BOTTLE PO ONE (17:17)
[2019-05-28] MEDS ORDERED: POLYETHYLENE GLYCOL POWDER 255 GM BOTTLE PO ONE (18:00)
[2019-05-29] MEDS: ALBUTEROL/IPRATROPIUM 3 ML NEB RESP TX SCH ×5 (00:03→19:20)
[2019-05-29] MEDS: HYDROCORTISONE 100 MG VIAL IV SCH ×3 (01:04→16:23)
[2019-05-29] MEDS ORDERED: MAGNESIUM CITRATE 300 ML BOTTLE PO ONE (05:00)
[2019-05-29 05:45] LABS: Basophils % 0.1 % (0.0-0.8); Eosinophils % 0.1 % (0.00-10.9); Immature Granulocytes % 0.5 %; Immature Granulocytes Absolute 0.05 #; Lymphocytes # 0.8 10*3/uL (1.4-4.0); Lymphocytes % 7.7 % (21.2-54.2); Mean Corpuscular HGB Conc 32.6 GM/DL (32-36); Mean Corpuscular Volume 76.9 FL (87-102); Mean Platelet Volume 11.5 FL (9.6-12.0); Monocytes % 2.8 % (1.7-12.7); Neutrophils % 88.8 % (38.7-73.9); Red Blood Count 2.99 MC/CUMM (3.8-5.5); White Blood Count 10.5 T/CUMM (4-12)
[2019-05-29 05:48] LABS: Hemoglobin 7.5 GM/DL (14.0-18.0); Platelet Count 204 T/CUMM (130-400)
[2019-05-29 05:55] LABS: Albumin 1.1 G/DL (3.4-5.0); Bilirubin,Total 1.4 MG/DL (0.2-1.0); Calcium 6.9 MG/DL (8.5-10.1); Total Protein 5.9 G/DL (6.4-8.3)
[2019-05-29 05:56] LABS: Band Neutrophils 1 % (0-10); Hypochromasia 2+; Lymphocytes 6 % (20-55); Platelet Estimate Adequate; Segmented Neutrophils 91 % (50-85); Target Cells Few; Total Cells Counted 100
[2019-05-29 05:57] LABS: Microcytosis 1+
[2019-05-29] MEDS: PANTOPRAZOLE 40 MG TABLET PO SCH (05:58)
[2019-05-29] MEDS: POTASSIUM CHLORIDE RIDER 10 MEQ in PREMIX 1 EACH IV PRN ×3 (06:21→13:15)
[2019-05-29] MEDS: DEXTROSE 10% 250 ML BAG IV PRN (06:43)
[2019-05-29] MEDS ORDERED: SODIUM CHLORIDE 0.9% 1,000 ML IV PRN (07:27)
[2019-05-29] MEDS ORDERED: LACTATED RINGERS 1,000 ML IV SCH (08:00)
[2019-05-29] MEDS ORDERED: propofoL 200 MG/20 ML VIAL IV ONE (09:00)
[2019-05-29] MEDS ORDERED: LIDOCAINE 2% 5 ML VIAL ONE (09:00)
[2019-05-29] MEDS ORDERED: PHENYLEPHRINE 1 MG/10 ML SYRINGE IV ONE (09:00)
[2019-05-29] MEDS ORDERED: FUROSEMIDE 20 MG/2 ML VIAL IV PRN (10:47)
[2019-05-29] MEDS ORDERED: ALBUTEROL/IPRATROPIUM 3 ML NEB RESP TX ONE (11:31)
[2019-05-29 12:05] LABS: ABG Base Excess 9.5 MMOL/L (-2.5-2.5); ABG HCO3 33.5 MMOL/L (20-26); ABG PCO2 42.9 MM HG (35-48); ABG PO2 47.6 MM HG (80-95); ABG TCO2 34.8 MMOL/L (23-27); Pt O2 Delivery Device Simple Mask
[2019-05-29] MEDS: carvediloL 6.25 MG TABLET PO SCH ×2 (12:58→16:23)
[2019-05-29] MEDS: PHENYTOIN 100 MG/4 ML UDCUP PER TUBE SCH ×2 (13:04→20:32)
[2019-05-29] MEDS: levETIRAcetam 500 MG TABLET PO SCH ×2 (13:05→20:32)
[2019-05-29] MEDS: FOLIC ACID 1 MG TABLET PO SCH (13:05)
[2019-05-29] MEDS: THIAMINE 100 MG TABLET PO SCH (13:05)
[2019-05-29] MEDS: SKIN HEALING OINT (AQUAPHOR) 50 GM TUBE TOP SCH (13:06)
[2019-05-29 16:36] LABS: Apearance,Urine Cloudy (Clear); Urine Color Yellow (Yellow)
[2019-05-29 16:37] LABS: Bilirubin,Urine Negative (Negative); Glucose,Urine (UA) Negative (Negative); Ketones,Urine Negative (Negative); Nitrite,Urine Negative (Negative); Protein,Urine 100 MG/DL; Urine Urobilinogen 0.2 EU/DL (0.2-1.0)
[2019-05-29 16:38] LABS: Blood, Urine Large mg/dL (Negative); RBC,Urine TNTC /HPF (0-4); WBC,Urine TNTC /HPF (0-6)
[2019-05-29] MEDS: POTASSIUM CHLORIDE 20 MEQ/15 ML UDCUP PER TUBE PRN ×2 (17:24→20:33)
[2019-05-29 21:42] LABS: Hemoglobin 10.6 GM/DL (14.0-18.0)
[2019-05-30] MEDS: POTASSIUM CHLORIDE 20 MEQ/15 ML UDCUP PER TUBE PRN ×2 (00:10→02:10)
[2019-05-30] MEDS: HYDROCORTISONE 100 MG VIAL IV SCH ×3 (01:58→17:55)
[2019-05-30 05:05] LABS: Basophils % 0.2 % (0.0-0.8); Eosinophils % 0.2 % (0.00-10.9); Hematocrit 32.5 VOL% (42.0-52.0); Hemoglobin 10.6 GM/DL (14.0-18.0); Immature Granulocytes % 0.3 %; Immature Granulocytes Absolute 0.04 #; Lymphocytes # 0.8 10*3/uL (1.4-4.0); Lymphocytes % 6.2 % (21.2-54.2); Mean Corpuscular HGB Conc 32.6 GM/DL (32-36); Mean Corpuscular Volume 78.9 FL (87-102); Monocytes % 2.1 % (1.7-12.7); Platelet Count 267 T/CUMM (130-400); Red Blood Count 4.12 MC/CUMM (3.8-5.5); Red Cell Distribution Width 21.1 % (9.3-17.3); White Blood Count 12.2 T/CUMM (4-12)
[2019-05-30 05:55] LABS: Albumin 1.3 G/DL (3.4-5.0); Calcium 7.8 MG/DL (8.5-10.1); Osmolality,Calculated 262.5 MOS/KG (273-304); Total Protein 6.5 G/DL (6.4-8.3)
[2019-05-30 06:15] LABS: Band Neutrophils 7 % (0-10); Lymphocytes 3 % (20-55); Segmented Neutrophils 88 % (50-85); Total Cells Counted 100
[2019-05-30 06:16] LABS: Hypochromasia 1+; Microcytosis 1+; Platelet Estimate Normal
[2019-05-30] MEDS: PANTOPRAZOLE 40 MG TABLET PO SCH (06:23)
[2019-05-30] MEDS: ALBUTEROL/IPRATROPIUM 3 ML NEB RESP TX SCH ×3 (06:50→19:01)
[2019-05-30] MEDS: carvediloL 6.25 MG TABLET PO SCH ×2 (09:01→17:56)
[2019-05-30] MEDS: PHENYTOIN 100 MG/4 ML UDCUP PER TUBE SCH (09:01)
[2019-05-30] MEDS: levETIRAcetam 500 MG TABLET PO SCH ×2 (09:01→21:27)
[2019-05-30] MEDS: FOLIC ACID 1 MG TABLET PO SCH (09:02)
[2019-05-30] MEDS: SKIN HEALING OINT (AQUAPHOR) 50 GM TUBE TOP SCH (09:02)
[2019-05-30] MEDS: THIAMINE 100 MG TABLET PO SCH (09:02)
[2019-05-30] MEDS: DEXTROSE 5% NACL 0.9% 1,000 ML IV SCH (17:59)
[2019-05-31] MEDS: ALBUTEROL/IPRATROPIUM 3 ML NEB RESP TX SCH ×4 (01:20→18:57)
[2019-05-31] MEDS: HYDROCORTISONE 100 MG VIAL IV SCH ×3 (01:46→17:21)
[2019-05-31] MEDS: PANTOPRAZOLE 40 MG TABLET PO SCH (06:40)
[2019-05-31] MEDS: FOLIC ACID 1 MG TABLET PO SCH (08:49)
[2019-05-31] MEDS: carvediloL 6.25 MG TABLET PO SCH ×2 (08:49→17:26)
[2019-05-31] MEDS: levETIRAcetam 500 MG TABLET PO SCH (08:49)
[2019-05-31] MEDS: THIAMINE 100 MG TABLET PO SCH (08:49)
[2019-05-31] MEDS: SKIN HEALING OINT (AQUAPHOR) 50 GM TUBE TOP SCH (08:50)
[2019-05-31] MEDS ORDERED: PIPERACILLIN/TAZOBACTAM 3,375 MG in SODIUM CHLORIDE 0.9% 100 ML IV SCH (10:00)
[2019-05-31 14:49] LABS: Cancer Antigen 19-9 219.3 U/ML (0-37); Carcinoembryonic Antigen 29.4 NG/ML (0.0-5.0); HIV Antigen/Antibody Result Nonreactive (Nonreactive)
[2019-05-31] MEDS: DEXTROSE 5% NACL 0.9% 1,000 ML IV SCH (15:13)
[2019-05-31] MEDS ORDERED: levETIRAcetam LIQUID 100 MG/ML 30 ML/BOTTLE PO SCH (21:00)
[2019-06-01] MEDS: ALBUTEROL/IPRATROPIUM 3 ML NEB RESP TX SCH ×4 (00:29→19:07)
[2019-06-01] MEDS: HYDROCORTISONE 100 MG VIAL IV SCH ×3 (01:13→17:48)
[2019-06-01] MEDS: DEXTROSE 10% 250 ML BAG IV PRN ×2 (03:36→17:38)
[2019-06-01 05:03] LABS: Basophils % 0.3 % (0.0-0.8); Hematocrit 38.3 VOL% (42.0-52.0); Hemoglobin 11.7 GM/DL (14.0-18.0); Immature Granulocytes % 0.3 %; Immature Granulocytes Absolute 0.02 #; Lymphocytes # 0.8 10*3/uL (1.4-4.0); Lymphocytes % 10.9 % (21.2-54.2); Mean Corpuscular HGB Conc 30.5 GM/DL (32-36); Mean Corpuscular Volume 82.4 FL (87-102); Mean Platelet Volume 10.7 FL (9.6-12.0); Monocytes % 3.7 % (1.7-12.7); Neutrophils % 84.8 % (38.7-73.9); Platelet Count 308 T/CUMM (130-400); Red Blood Count 4.65 MC/CUMM (3.8-5.5); Red Cell Distribution Width 21.9 % (9.3-17.3); White Blood Count 7.5 T/CUMM (4-12)
[2019-06-01 05:33] LABS: Band Neutrophils 11 % (0-10); Hypochromasia 1+; Lymphocytes 10 % (20-55); Segmented Neutrophils 76 % (50-85); Total Cells Counted 100
[2019-06-01 05:34] LABS: Microcytosis 1+; Platelet Estimate Normal; Target Cells Slight
[2019-06-01 05:38] LABS: Osmolality,Calculated 262.9 MOS/KG (273-304)
[2019-06-01] MEDS: PANTOPRAZOLE 40 MG TABLET PO SCH (06:45)
[2019-06-01] MEDS: carvediloL 6.25 MG TABLET PO SCH ×2 (09:26→17:48)
[2019-06-01] MEDS: FOLIC ACID 1 MG TABLET PO SCH (09:26)
[2019-06-01] MEDS: THIAMINE 100 MG TABLET PO SCH (09:26)
[2019-06-01] MEDS: SKIN HEALING OINT (AQUAPHOR) 50 GM TUBE TOP SCH (09:26)
[2019-06-01] MEDS: DEXTROSE 5% NACL 0.9% 1,000 ML IV SCH (14:40)
[2019-06-02] MEDS: DEXTROSE 10% 250 ML BAG IV PRN ×2 (00:03→03:07)
[2019-06-02] MEDS: ALBUTEROL/IPRATROPIUM 3 ML NEB RESP TX SCH ×4 (00:14→19:15)
[2019-06-02] MEDS ORDERED: DEXTROSE 10% 1,000 ML IV SCH (00:30)
[2019-06-02] MEDS: DEXTROSE 10% 500 ML IV SCH ×2 (00:49→13:09)
[2019-06-02] MEDS: HYDROCORTISONE 100 MG VIAL IV SCH ×3 (00:49→16:17)
[2019-06-02 07:04] LABS: Basophils % 1.1 % (0.0-0.8); Hematocrit 34.2 VOL% (42.0-52.0); Immature Granulocytes % 0.7 %; Immature Granulocytes Absolute 0.02 #; Lymphocytes # 0.3 10*3/uL (1.4-4.0); Lymphocytes % 11.6 % (21.2-54.2); Mean Corpuscular HGB Conc 32.2 GM/DL (32-36); Mean Corpuscular Volume 79.9 FL (87-102); Monocytes % 1.1 % (1.7-12.7); Neutrophils % 85.5 % (38.7-73.9); Platelet Count 285 T/CUMM (130-400); Red Blood Count 4.28 MC/CUMM (3.8-5.5); Red Cell Distribution Width 22.1 % (9.3-17.3); White Blood Count 2.8 T/CUMM (4-12)
[2019-06-02 07:20] LABS: Calcium 7.6 MG/DL (8.5-10.1); Osmolality,Calculated 268.4 MOS/KG (273-304)
[2019-06-02 07:32] LABS: Band Neutrophils 17 % (0-10); Hypochromasia 1+; Lymphocytes 11 % (20-55); Platelet Estimate Adequate; Segmented Neutrophils 68 % (50-85); Total Cells Counted 100
[2019-06-02 07:33] LABS: Microcytosis 1+
[2019-06-02] MEDS: PANTOPRAZOLE 40 MG TABLET PO SCH (07:47)
[2019-06-02] MEDS ORDERED: MORPHINE 4 MG/1 ML VIAL IV ONE (09:04)
[2019-06-02] MEDS: FOLIC ACID 1 MG TABLET PO SCH (09:42)
[2019-06-02] MEDS: THIAMINE 100 MG TABLET PO SCH (09:42)
[2019-06-02] MEDS: carvediloL 6.25 MG TABLET PO SCH ×2 (09:42→16:06)
[2019-06-02] MEDS: SKIN HEALING OINT (AQUAPHOR) 50 GM TUBE TOP SCH (09:59)
[2019-06-02] MEDS: DEXTROSE 10% 1,000 ML IV SCH ×2 (13:09→21:31)
[2019-06-02] MEDS: levETIRAcetam 500 MG TABLET PO SCH (21:31)
[2019-06-03] MEDS: HYDROCORTISONE 100 MG VIAL IV SCH ×3 (00:29→16:34)
[2019-06-03] MEDS: ALBUTEROL/IPRATROPIUM 3 ML NEB RESP TX SCH ×4 (01:30→19:02)
[2019-06-03] MEDS: DEXTROSE 10% 250 ML BAG IV PRN ×2 (02:44→12:03)
[2019-06-03 05:22] LABS: Basophils # 0.1 10*3/uL (0.0-0.2); Basophils % 1.1 % (0.0-0.8); Hematocrit 28.1 VOL% (42.0-52.0); Hemoglobin 9.1 GM/DL (14.0-18.0); Immature Granulocytes % 0.2 %; Immature Granulocytes Absolute 0.01 #; Lymphocytes # 0.1 10*3/uL (1.4-4.0); Lymphocytes % 2.4 % (21.2-54.2); Mean Corpuscular HGB Conc 32.4 GM/DL (32-36); Mean Corpuscular Volume 79.8 FL (87-102); Mean Platelet Volume 10.4 FL (9.6-12.0); Monocytes % 0.6 % (1.7-12.7); Neutrophils % 95.7 % (38.7-73.9); Platelet Count 195 T/CUMM (130-400); Red Blood Count 3.52 MC/CUMM (3.8-5.5); Red Cell Distribution Width 21.6 % (9.3-17.3); White Blood Count 4.7 T/CUMM (4-12)
[2019-06-03 05:33] LABS: Calcium 7.4 MG/DL (8.5-10.1); Osmolality,Calculated 264.8 MOS/KG (273-304)
[2019-06-03 06:03] LABS: Band Neutrophils 10 % (0-10); Hypochromasia 2+; Lymphocytes 3 % (20-55); Platelet Estimate Adequate; Segmented Neutrophils 86 % (50-85); Total Cells Counted 100
[2019-06-03 06:04] LABS: Microcytosis 1+
[2019-06-03] MEDS: PANTOPRAZOLE 40 MG TABLET PO SCH (06:38)
[2019-06-03] MEDS: SKIN HEALING OINT (AQUAPHOR) 50 GM TUBE TOP SCH (09:39)
[2019-06-03] MEDS: carvediloL 6.25 MG TABLET PO SCH ×2 (09:40→16:34)
[2019-06-03] MEDS: levETIRAcetam 500 MG TABLET PO SCH ×2 (09:40→21:28)
[2019-06-03] MEDS: DEXTROSE 10% 1,000 ML IV SCH (09:41)
[2019-06-03] MEDS: THIAMINE 100 MG TABLET PO SCH (09:41)
[2019-06-03] MEDS: FOLIC ACID 1 MG TABLET PO SCH (09:41)
[2019-06-03] MEDS: POTASSIUM CHLORIDE RIDER 10 MEQ in PREMIX 1 EACH IV PRN ×3 (10:59→14:12)
[2019-06-04] MEDS: ALBUTEROL/IPRATROPIUM 3 ML NEB RESP TX SCH ×2 (01:41→07:36)
[2019-06-04] MEDS: HYDROCORTISONE 100 MG VIAL IV SCH ×2 (02:16→08:38)
[2019-06-04] MEDS: DEXTROSE 10% 1,000 ML IV SCH (05:20)
[2019-06-04 05:29] LABS: Basophils % 1.7 % (0.0-0.8); Hematocrit 30.6 VOL% (42.0-52.0); Hemoglobin 9.6 GM/DL (14.0-18.0); Lymphocytes # 0.1 10*3/uL (1.4-4.0); Lymphocytes % 11.3 % (21.2-54.2); Mean Corpuscular HGB Conc 31.4 GM/DL (32-36); Mean Corpuscular Volume 82.7 FL (87-102); Mean Platelet Volume 10.4 FL (9.6-12.0); Monocytes % 2.6 % (1.7-12.7); Neutrophils % 84.4 % (38.7-73.9); Platelet Count 182 T/CUMM (130-400); Red Cell Distribution Width 22.2 % (9.3-17.3); White Blood Count 1.2 T/CUMM (4-12)
[2019-06-04 05:54] LABS: Calcium 7.6 MG/DL (8.5-10.1); Osmolality,Calculated 264.8 MOS/KG (273-304)
[2019-06-04 05:58] LABS: Band Neutrophils 11 % (0-10); Hypochromasia Slight; Lymphocytes 10 % (20-55); Microcytosis 1+; Platelet Estimate Adequate; Segmented Neutrophils 77 % (50-85); Total Cells Counted 100
[2019-06-04] MEDS: PANTOPRAZOLE 40 MG TABLET PO SCH (06:42)
[2019-06-04] MEDS: DEXTROSE 10% 250 ML BAG IV PRN (07:50)
[2019-06-04] MEDS: carvediloL 6.25 MG TABLET PO SCH ×2 (08:39→08:48)
[2019-06-04] MEDS: THIAMINE 100 MG TABLET PO SCH ×2 (08:39→08:49)
[2019-06-04] MEDS: FOLIC ACID 1 MG TABLET PO SCH ×2 (08:39→08:48)
[2019-06-04] MEDS: SKIN HEALING OINT (AQUAPHOR) 50 GM TUBE TOP SCH (08:39)
[2019-06-04] MEDS: levETIRAcetam 500 MG TABLET PO SCH ×2 (08:39→08:49)
[2019-06-04] MEDS ORDERED: LORazepam 2 MG/1 ML VIAL IV PRN (09:51)
[2019-06-04] MEDS: MORPHINE 4 MG/1 ML VIAL IV PRN ×2 (10:46→14:14)
[2019-06-04] MEDS ORDERED: ZINC OXIDE PASTE 113 GM TUBE TOP SCH (13:00)
[2019-06-04 21:12] VITALS: BP 108/57
== END 2019-06-04 22:55 | disposition expired | DRG 720 ==
LOC: EDBD → EDUNIT# → N.ED 19:27 → SUATTDRO 22:51 → N.EDINP 22:51 → N.CC 23:30 → N.ICU 05-24 18:48 → N.2E 05-25 14:51
PROVIDERS: ADMIT Internal Medicine; ATTEND Internal Medicine